=== PATIENT | male | born 1955 | race Caucasian/White ===

== ENCOUNTER → 2017-08-23 | Outpatient (CLI) | payer OTHER ==
[~2017-08-23] MED LIST: ASPIRIN81 M2 PO; CIPROFLOXACIN500 M1 PO; FLAGYL500 MG PO; NORCO 5-325 TA1 EACH PO; TOPROL XL100 MG; ZOFRAN ODT4 MG PO
[2017-08-23 11:44] LABS: URINE BILIRUBIN NEGATIVE (Negative); URINE BLOOD NEGATIVE (Negative); URINE CLARITY CLEAR; URINE COLOR YELLOW; URINE GLUCOSE-RANDOM NEGATIVE (Negative); URINE KETONES TRACE (Negative); URINE LEUKOCYTES-REFLEX NEGATIVE (Negative); URINE NITRITE-REFLEX NEGATIVE (Negative); URINE PROTEIN TRACE (Negative); URINE SPECIFIC GRAVITY >= 1.030 (1.005-1.030); URINE UROBILINOGEN 0.2 E.U./dl (0.2-1.0)
[2017-08-23 11:57] LABS: ALKALINE PHOSPHATASE 62 U/L (46-116); ANION GAP 7 mmol/L (7-16); BUN 14 mg/dL (7-18); CALCIUM 8.8 mg/dL (8.5-10.1); CHLORIDE 103 mmol/L (98-107); CHOLESTEROL 174 mg/dL (<200); CO2 29 mmol/L (21-32); GLUCOSE 103 mg/dL (70-99); HDL CHOLESTEROL 38 mg/dL (>40); LDL CHOLESTEROL 115 mg/dL (<100); POTASSIUM 4.2 mmol/L (3.5-5.1); SERUM ASSESSMENT Clear; SGOT 29 U/L (15-37); SGPT 53 U/L (30-65); SODIUM 139 mmol/L (136-145); TC:HDL 4.6 Ratio (Not establshd); TOTAL BILIRUBIN 0.9 mg/dL (<0.1-1.0); TOTAL PROTEIN 7.8 g/dL (6.4-8.2); TRIGLYCERIDE 106 mg/dL (<150); URIC ACID* 5.5 mg/dL (2.6-7.2); VLDL 21 mg/dL (<40)
[2017-08-24 02:07] LABS: T3 UPTAKE 24 % (24-39)
== END ==
LOC: M.LAB 11:22
PROVIDERS: Internal Medicine
DX: I10 Essential (primary) hypertension (principal); E80.4 Gilbert syndrome; K75.81 Nonalcoholic steatohepatitis (NASH)

== ENCOUNTER → 2019-03-31 | Outpatient (CLI) | payer OTHER ==
[2019-03-31 11:38] LABS: ABSOLUTE BASOPHILS 0.1 thou/uL (0.0-0.2); ABSOLUTE EOSINOPHILS 0.1 thou/uL (0.0-0.7); ABSOLUTE LYMPHOCYTES 0.9 thou/uL (0.8-5.3); ABSOLUTE MONOCYTES 0.5 thou/uL (0.0-1.2); ABSOLUTE NEUTROPHILS 7.6 thou/uL (1.6-8.1); BASOPHILS 0.7 %; EOSINOPHILS 0.9 %; HEMATOCRIT 43.3 % (42.0-52.0); HEMOGLOBIN 15.1 gm/dL (14.0-18.0); LYMPHOCYTES 10.3 %; MCH 30.5 pg (26.0-34.0); MCHC 34.8 g/dL (28.0-37.0); MCV 87.6 fL (80.0-100.0); MONOCYTES 5.5 %; MPV 10.3 fl. (7.2-11.1); NUCLEATED RBCS 0 /100WBC; PLATELET COUNT* 217 thou/uL (150-400); POLYS 82.6 %; RBC 4.95 mil/uL (4.50-6.00); RDW-CV 13.6 % (10.5-14.5); WBC 9.2 thou/uL (4.0-11.0)
[2019-03-31 11:50] LABS: ALKALINE PHOSPHATASE 60 U/L (46-116); ANION GAP 10 mmol/L (7-16); BUN 18 mg/dL (7-18); CALCIUM 8.6 mg/dL (8.5-10.1); CHLORIDE 102 mmol/L (98-107); CHOLESTEROL 203 mg/dL (<200); CO2 27 mmol/L (21-32); CREATININE 1.1 mg/dL (0.6-1.3); GLUCOSE 129 mg/dL (70-99); HDL CHOLESTEROL 35 mg/dL (>40); LDL CHOLESTEROL 147 mg/dL (<100); POTASSIUM 4.5 mmol/L (3.5-5.1); SGOT 31 U/L (15-37); SGPT 60 U/L (30-65); SODIUM 139 mmol/L (136-145); TC:HDL 5.8 Ratio (Not establshd); TOTAL BILIRUBIN 1.2 mg/dL (<0.1-1.0); TOTAL PROTEIN 7.7 g/dL (6.4-8.2); TRIGLYCERIDE 105 mg/dL (<150); VLDL 21 mg/dL (<40)
[2019-03-31 11:51] LABS: SERUM ASSESSMENT Clear
[2019-04-03 16:07] LABS: FREE PSA 0.3 ng/mL
== END ==
LOC: M.LAB 11:10
PROVIDERS: Family Medicine
DX: Z12.5 Encounter for screening for malignant neoplasm of prostate (principal); I10 Essential (primary) hypertension; E80.4 Gilbert syndrome; H26.9 Unspecified cataract; Z20.1 Contact with and (suspected) exposure to tuberculosis

== ENCOUNTER → 2020-01-19 | Outpatient (CLI) | payer OTHER ==
[2020-01-19 09:06] LABS: ABSOLUTE BASOPHILS 0.1 thou/uL (0.0-0.2); ABSOLUTE EOSINOPHILS 0.1 thou/uL (0.0-0.7); ABSOLUTE LYMPHOCYTES 0.9 thou/uL (0.8-5.3); ABSOLUTE MONOCYTES 0.6 thou/uL (0.0-1.2); HEMOGLOBIN 14.3 gm/dL (14.0-18.0); LYMPHOCYTES 10.2 %; MCH 29.8 pg (26.0-34.0); MCV 87.7 fL (80.0-100.0); MONOCYTES 6.5 %; MPV 9.7 fl. (7.2-11.1); NUCLEATED RBCS 0 /100WBC; PLATELET COUNT* 179 thou/uL (150-400); POLYS 81.3 %; RBC 4.79 mil/uL (4.50-6.00); RDW-CV 13.9 % (10.5-14.5); WBC 8.7 thou/uL (4.0-11.0)
[2020-01-19 09:17] LABS: ALBUMIN 3.8 g/dL (3.4-5.0); ALKALINE PHOSPHATASE 59 U/L (46-116); ANION GAP 8 mmol/L (7-16); BUN 21 mg/dL (7-18); CALCIUM 8.9 mg/dL (8.5-10.1); CHLORIDE 105 mmol/L (98-107); CHOLESTEROL 173 mg/dL (<200); CO2 27 mmol/L (21-32); CREATININE 1.1 mg/dL (0.6-1.3); GLUCOSE 119 mg/dL (70-99); HDL CHOLESTEROL 39 mg/dL (>40); LDL CHOLESTEROL 117 mg/dL (<100); POTASSIUM 4.7 mmol/L (3.5-5.1); SGOT 25 U/L (15-37); SGPT 55 U/L (30-65); SODIUM 140 mmol/L (136-145); TC:HDL 4.4 Ratio (Not establshd); TOTAL BILIRUBIN 0.8 mg/dL (<0.1-1.0); TOTAL PROTEIN 7.4 g/dL (6.4-8.2); TRIGLYCERIDE 87 mg/dL (<150); VLDL 17 mg/dL (<40)
[2020-01-19 09:19] LABS: SERUM ASSESSMENT Clear
[2020-01-20 03:06] LABS: GLYCOHEMOGLOBIN (HGB A1C) 5.9 % (4.8-5.6)
== END ==
LOC: M.RAD 08:41
PROVIDERS: ATTEND Family Medicine
DX: Z20.1 Contact with and (suspected) exposure to tuberculosis (principal); E80.4 Gilbert syndrome; K75.81 Nonalcoholic steatohepatitis (NASH); I10 Essential (primary) hypertension

== ENCOUNTER → 2021-02-13 | Outpatient (CLI) | payer MEDICARE, OTHER ==
[2021-02-13 11:22] LABS: CALCIUM 9.5 mg/dL (8.5-10.1); CREATININE 1.2 mg/dL (0.6-1.3); POTASSIUM 4.6 mmol/L (3.5-5.1); TOTAL BILIRUBIN 1.4 mg/dL (<0.1-1.0)
[2021-02-13 11:23] LABS: ALBUMIN 4.2 g/dL (3.4-5.0); TOTAL PROTEIN 8.3 g/dL (6.4-8.2)
[2021-02-14 07:09] LABS: GLYCOHEMOGLOBIN (HGB A1C) 6.7 % (4.8-5.6)
== END ==
LOC: M.LAB 10:26
PROVIDERS: ATTEND Family Medicine
DX: I65.21 Occlusion and stenosis of right carotid artery (principal); E11.9 Type 2 diabetes mellitus without complications